=== PATIENT | male | born 1990 | race Two or more races ===

== ENCOUNTER 2020-08-27 11:01 | Inpatient (IN) | payer MEDICAID ==
[~2020-08-27] VITALS: Ht 167.6 cm; Wt 90.3 kg
[2020-08-27] MEDS ORDERED: HALOPERIDOL 5 MG TABLET PO PRN (11:15)
[2020-08-27 16:16] VITALS: BP 109/54
[2020-08-28 00:26] VITALS: BP 120/78
[2020-08-28] MEDS ORDERED: MAGNESIUM HYDROXIDE SUSPENSION 30 ML UDCUP PO PRN (07:30)
[2020-08-28] MEDS ORDERED: ALBUTEROL SULFATE HFA 90 MCG/PUFF 8 GM INHALER IH PRN (07:30)
[2020-08-28] MEDS ORDERED: ONDANSETRON HCL 4 MG TABLET PO PRN (07:30)
[2020-08-28] MEDS ORDERED: PETROLATUM,WHITE 28 GM JELLY TP PRN (07:30)
[2020-08-28] MEDS ORDERED: LOPERAMIDE HCL 2 MG CAPSULE PO PRN (07:30)
[2020-08-28] MEDS ORDERED: IBUPROFEN 400 MG TABLET PO PRN (07:30)
[2020-08-28] MEDS ORDERED: NICOTINE 14 MG/24 HOUR PATCH TD PRN (07:30)
[2020-08-28] MEDS ORDERED: DOCUSATE SODIUM 100 MG CAPSULE PO PRN (07:30)
[2020-08-28] MEDS ORDERED: CloNIDine HCL 0.1 MG TABLET PO PRN (07:30)
[2020-08-28] MEDS ORDERED: GuaiFENesin/D-METHORPHAN [SUGAR-FREE] 200-20MG/10 ML SYRUP UDCUP PO PRN (07:30)
[2020-08-28 07:52] LABS: BASOPHILS % (AUTO) 0.8 % (0.0-2.0); EOSINOPHILS % (AUTO) 4.6 % (1.0-6.0); HEMATOCRIT 43.4 % (41-53); HEMOGLOBIN 15.1 g/dL (13.5-17.5); LYMPHOCYTES # (AUTO) 2.2 K/uL (1.0-4.8); LYMPHOCYTES % (AUTO) 27.3 % (22.0-44.0); MEAN CORPUSCULAR HGB CONC 34.7 G/dL (31.0-37.0); MEAN CORPUSCULAR VOLUME 92 fL (80-100); MONOCYTES # (AUTO) 0.5 K/uL (0.1-1.0); MONOCYTES % (AUTO) 6.7 % (2.0-9.0); NEUTROPHILS % (AUTO) 60.6 % (40.0-70.0); PLATELET COUNT (AUTO) 184 K/uL (150-450); RED BLOOD CELL COUNT(AUTO) 4.71 MIL/uL (4.50-5.90)
[2020-08-28 07:59] LABS: HEMOGLOBIN A1C 5.4 % (3.8-5.6)
[2020-08-28 08:06] LABS: ALANINE AMINOTRANSFERASE 43 U/L (12-78); ALBUMIN 3.6 g/dL (3.4-5.0); ALKALINE PHOSPHATASE 109 U/L (46-116); ANION GAP 8 mmol/L (8-16); ASPARTATE AMINOTRANSFERASE 16 U/L (15-37); BILIRUBIN,TOTAL 0.3 mg/dL (0.1-1.0); CALCIUM, TOTAL 8.8 mg/dL (8.8-10.5); CARBON DIOXIDE 28 mmol/L (22-29); CHLORIDE 104 mmol/L (98-107); CHOL/HDL RATIO 4.6 (4.2-7.3); CHOLESTEROL 124 mg/dL (131-200); CREATININE 1.05 mg/dL (0.60-1.30); FREE T4 (FREE THYROXINE) 1.06 ng/dL (0.76-1.46); GLOMERULAR FILTR. RATE CALC > 60 mL/min (>60); GLUCOSE,RANDOM 97 mg/dL (70-110); HDL CHOLESTEROL 27 mg/dL (40-60); LDL CHOL (CALC.) 76 mg/dL (0-130); POTASSIUM 3.8 mmol/L (3.5-5.1); SODIUM SERUM 140 mmol/L (136-145); THYROID STIMULATING HORMONE 0.78 uIU/mL (0.36-3.74); TOTAL PROTEIN, SERUM 7.5 g/dL (6.4-8.2); TRIGLYCERIDES 104 mg/dL (15-150); UREA NITROGEN, BLOOD 10 mg/dL (7-18)
[2020-08-28 08:29] VITALS: BP 117/78
[2020-08-28 19:08] VITALS: BP 100/60
[2020-08-28] MEDS: BENZTROPINE MESYLATE 0.5 MG TABLET PO SCH (20:21)
[2020-08-28] MEDS: TraZODone HCL 150 MG TABLET PO SCH (20:21)
[2020-08-28] MEDS: ARIPiprazole 10 MG TABLET PO SCH (20:21)
[2020-08-28] MEDS: ZOLPIDEM TARTRATE 10 MG TABLET PO PRN (21:39)
[2020-08-29 01:01] VITALS: BP 105/63
[2020-08-29] MEDS: LORazepam 2 MG TABLET PO PRN (08:34)
[2020-08-29 08:38] VITALS: BP 118/73
[2020-08-29 17:38] VITALS: BP 108/67
[2020-08-29] MEDS: BENZTROPINE MESYLATE 0.5 MG TABLET PO SCH (20:30)
[2020-08-29] MEDS: TraZODone HCL 150 MG TABLET PO SCH (20:30)
[2020-08-29] MEDS: ARIPiprazole 10 MG TABLET PO SCH (20:30)
[2020-08-30 00:43] VITALS: BP 113/72
[2020-08-30 08:25] VITALS: BP 122/73
[2020-08-30 16:37] VITALS: BP 108/68
[2020-08-30] MEDS: LORazepam 2 MG TABLET PO PRN (17:31)
[2020-08-30] MEDS: ARIPiprazole 10 MG TABLET PO SCH (20:29)
[2020-08-30] MEDS: TraZODone HCL 150 MG TABLET PO SCH (20:30)
[2020-08-30] MEDS: BENZTROPINE MESYLATE 0.5 MG TABLET PO SCH (20:40)
[2020-08-31 00:33] VITALS: BP 118/72
[2020-08-31 08:38] VITALS: BP 106/62
[2020-08-31 16:35] VITALS: BP 101/68
[2020-08-31] MEDS: ARIPiprazole 10 MG TABLET PO SCH (21:18)
[2020-08-31] MEDS: BENZTROPINE MESYLATE 0.5 MG TABLET PO SCH (21:18)
[2020-08-31] MEDS: TraZODone HCL 150 MG TABLET PO SCH (21:18)
[2020-09-01 01:05] VITALS: BP 110/62
[2020-09-01 08:51] VITALS: BP 107/68
[2020-09-01 09:37] LABS: COVID AG,FIA SOURCE NASOPHARYNGEAL
[2020-09-01] MEDS ORDERED: ARIPiprazole LAUROXIL ER SUSPENSION 882 MG/3.2 ML SYRINGE IM ONE (15:00)
[2020-09-01] MEDS ORDERED: ARIPiprazole LAUROXIL,SUBMICR. ER SUSPENSION 675 MG/2.4 ML SYRINGE IM ONE (15:00)
[2020-09-01 16:24] VITALS: BP 110/86
[2020-09-01] MEDS: TraZODone HCL 150 MG TABLET PO SCH (20:10)
[2020-09-01] MEDS: BENZTROPINE MESYLATE 0.5 MG TABLET PO SCH (20:10)
[2020-09-02 04:45] VITALS: BP 114/72
[2020-09-02 08:23] VITALS: BP 112/63
[2020-09-02] MEDS: ARIPiprazole 15 MG TABLET PO SCH (08:33)
[2020-09-02 16:19] VITALS: BP 104/60
[2020-09-02] MEDS: BENZTROPINE MESYLATE 0.5 MG TABLET PO SCH (20:11)
[2020-09-02] MEDS: TraZODone HCL 150 MG TABLET PO SCH (20:11)
[2020-09-02] MEDS: MAG HYDROX/AL HYDROX/SIMETH ES 30 ML SUSPENSION UDCUP PO PRN (22:47)
[2020-09-03 00:56] VITALS: BP 115/62
[2020-09-03] MEDS: ARIPiprazole 15 MG TABLET PO SCH (08:37)
[2020-09-03 08:43] VITALS: BP 117/76
[2020-09-03 16:17] VITALS: BP 117/68
[2020-09-03] MEDS: BENZTROPINE MESYLATE 0.5 MG TABLET PO SCH (20:03)
[2020-09-03] MEDS: TraZODone HCL 150 MG TABLET PO SCH (20:03)
[2020-09-04 01:38] VITALS: BP 109/62
[2020-09-04] MEDS: ARIPiprazole 15 MG TABLET PO SCH (08:35)
[2020-09-04 09:01] VITALS: BP 103/73
[2020-09-04 16:16] VITALS: BP 106/62
[2020-09-04] MEDS: TraZODone HCL 150 MG TABLET PO SCH (20:22)
[2020-09-04] MEDS: BENZTROPINE MESYLATE 0.5 MG TABLET PO SCH (20:22)
[2020-09-05 00:06] VITALS: BP 118/69
[2020-09-05] MEDS: MAG HYDROX/AL HYDROX/SIMETH ES 30 ML SUSPENSION UDCUP PO PRN (02:51)
[2020-09-05 08:52] VITALS: BP 106/70
[2020-09-05] MEDS: ARIPiprazole 15 MG TABLET PO SCH (08:54)
[2020-09-05] MEDS: ACETAMINOPHEN 325 MG TABLET PO PRN (17:10)
[2020-09-05 17:30] VITALS: BP 133/75
[2020-09-05] MEDS: TraZODone HCL 150 MG TABLET PO SCH (20:57)
[2020-09-05] MEDS: BENZTROPINE MESYLATE 0.5 MG TABLET PO SCH (20:57)
[2020-09-06 04:54] VITALS: BP 121/74
[2020-09-06 08:28] VITALS: BP 112/68
[2020-09-06] MEDS: ARIPiprazole 15 MG TABLET PO SCH (08:51)
[2020-09-06 16:24] VITALS: BP 107/63
[2020-09-06] MEDS: MAG HYDROX/AL HYDROX/SIMETH ES 30 ML SUSPENSION UDCUP PO PRN (18:05)
[2020-09-06] MEDS: TraZODone HCL 150 MG TABLET PO SCH (20:17)
[2020-09-06] MEDS: BENZTROPINE MESYLATE 0.5 MG TABLET PO SCH (20:17)
[2020-09-07 06:27] VITALS: BP 120/68
[2020-09-07 08:37] VITALS: BP 115/63
[2020-09-07] MEDS: ARIPiprazole 15 MG TABLET PO SCH (09:14)
[2020-09-07 16:17] VITALS: BP 109/70
[2020-09-07] MEDS: ACETAMINOPHEN 325 MG TABLET PO PRN (18:04)
[2020-09-07] MEDS: MAG HYDROX/AL HYDROX/SIMETH ES 30 ML SUSPENSION UDCUP PO PRN (18:56)
[2020-09-07] MEDS: TraZODone HCL 150 MG TABLET PO SCH (20:37)
[2020-09-07] MEDS: BENZTROPINE MESYLATE 0.5 MG TABLET PO SCH (20:37)
[2020-09-08] MEDS: ZOLPIDEM TARTRATE 10 MG TABLET PO PRN (00:28)
[2020-09-08 01:12] VITALS: BP 113/61
[2020-09-08 05:42] VITALS: BP 105/68
[2020-09-08 07:45] LABS: COVID AG,FIA SOURCE NASOPHARYNGEAL
[2020-09-08 08:27] VITALS: BP 114/72
[2020-09-08] MEDS ORDERED: ARIP882S IM (08:37)
[2020-09-08] MEDS ORDERED: BENZ0.5T44 PO (08:37)
[2020-09-08] MEDS ORDERED: TRAZ150 PO (08:37)
[2020-10-01] MEDS ORDERED: ARIPiprazole LAUROXIL ER SUSPENSION 882 MG/3.2 ML SYRINGE IM SCH (09:00)
== END 2020-09-08 11:10 | disposition home or self-care (01) | DRG 750 ==
LOC: B2S 13:46
DX: F25.1 Schizoaffective disorder, depressive type (principal); F41.9 Anxiety disorder, unspecified; R45.851 Suicidal ideations; F12.10 Cannabis abuse, uncomplicated; E66.9 Obesity, unspecified; Z20.822 Contact with and (suspected) exposure to COVID-19; Z59.0 Homelessness; Z79.899 Other long term (current) drug therapy; Z68.32 Body mass index [BMI] 32.0-32.9, adult
CPT/HCPCS: 83036; 84436; 84439; 84443; 87081; 87426; A9575